=== PATIENT | female | born 1990 | race Caucasian/White ===

== ENCOUNTER 2016-10-02 04:20 | Emergency (ER) | payer SELFPAY ==
[2016-10-02 04:32] VITALS: BP 94/58
[2016-10-02 07:09] LABS: APPEARANCE,URINE SLIGHTLY-CLOUDY; BILIRUBIN,URINE NEGATIVE (NEGATIVE); GLUCOSE, URINE NEGATIVE (NEGATIVE); KETONES,URINE NEGATIVE (NEGATIVE); LEUKOCYTE ESTERASE,URINE LARGE (NEGATIVE); NITRITE,URINE NEGATIVE (NEGATIVE); PROTEIN,URINE NEGATIVE (NEGATIVE); UROBILINOGEN,URINE NEGATIVE mg/dL (<2.0)
--- NOTE | 2016-10-02 08:20 | ER Document Report ---
HPI - HPI Patient complains to provider of: perineal pain Onset: Other - 3 days Onset/Duration: Persistent Quality of pain: Burning Pain Level: 5 Context: Patient complains of pain to perineum for the past 3 days. Patient states that she was [facility] and is currently taking Flagyl to treat bacterial vaginosis. Patient reports that this morning she received a phone call telling her that she tested positive for herpes. She does complain of burning with urination. Patient has not been sexually active since being tested at the health department. Associated Symptoms: Other - Perineal pain Exacerbated by: Other - Urination Relieved by: Denies Similar symptoms previously: No Recently seen / treated by doctor: Yes - ROS ROS below otherwise negative: Yes Systems Reviewed and Negative: Yes All other systems reviewed and negative - CONSTITUTIONAL Constitutional: DENIES: Fever, Chills - CARDIOVASCULAR Cardiovascular: DENIES: Chest pain - URINARY Urinary: REPORTS: Dysuria - REPRODUCTIVE Reproductive: DENIES: : Notes: Pain to perineum, sores to perineum - DERM Skin Color: Normal Skin Problems: Rash Past Medical History - General Information source: Patient Last Menstrual Period: 09/18/2016 - Social History Smoking Status: Current Every Day Smoker Frequency of alcohol use: Social Drug Abuse: None Occupation: none Family History: Arthritis, DM, Hyperlipidemia, Hypertension, Malignancy, Thyroid Disfunction Patient has suicidal ideation: No Patient has homicidal ideation: No Renal/ Medical History: Denies: Hx Peritoneal Dialysis Skin Medical History: Reports Hx MRSA Psychiatric Medical History: Reports: Hx Anxiety, Hx Attention Deficit Hyperactivity Disorder, Hx Depression Infectious Medical History: Reports: Hx MRSA Surgical Hx: Negative - Immunizations Immunizations up to date: Yes Hx Diphtheria, Pertussis, Tetanus Vaccination: Yes Vertical Provider Document - CONSTITUTIONAL Agree With Documented VS: Yes Exam Limitations: No Limitations General Appearance: WD/WN, No Apparent Distress - INFECTION CONTROL TRAVEL OUTSIDE OF THE [place] IN LAST 30 DAYS: No - HEENT HEENT: Atraumatic, Normocephalic - NECK Neck: Normal Inspection - RESPIRATORY Respiratory: Breath Sounds Normal, No Respiratory Distress O2 Sat by Pulse Oximetry: 98 - CARDIOVASCULAR Cardiovascular: Regular Rate, Regular Rhythm - REPRODUCTIVE Notes: Patient with scattered erythematous ulcerations to the vulva - BACK Back: Normal Inspection. negative: CVA Tenderness-Right, CVA Tenderness-Left - MUSCULOSKELETAL/EXTREMETIES Musculoskeletal/Extremeties: MAEW, FROM, Non-Tender - NEURO Level of Consciousness: Awake, Appropriate - DERM Integumentary: Warm, Dry, Rash - Erythematous ulcerations to vulva Course - Vital Signs Vital signs: Temp Pulse Resp BP Pulse Ox 97.7 F 85 16 94/58 L 98 10/02/16 04:32 10/02/16 04:32 10/02/16 04:32 10/02/16 04:32 10/02/16 04:32 - Laboratory Laboratory results interpreted by me: 10/02/16 06:32 Urine Blood SMALL H Ur Leukocyte Esterase LARGE H Discharge - Discharge Clinical Impression: Herpes UTI (urinary tract infection) Qualifiers: Urinary tract infection type: site unspecified Hematuria presence: with hematuria Qualified Code(s): N39.0 - Urinary tract infection, site not specified Condition: Stable Disposition: HOME, SELF-CARE Instructions: Urinary Tract Infection ([facility]), Cephalexin ([facility]), Genital Herpes ( [facility]), Acyclovir ([facility]) Additional Instructions: Return immediately for any new or worsening symptoms Followup with your primary care provider, call tomorrow to make a followup appointment Prescriptions: Acyclovir [Zovirax 200 mg Capsule] 800 mg PO Q4H #140 capsule Cephalexin Monohydrate [Keflex 500 mg Capsule] 500 mg PO BID 7 Days Hydrocodone/Acetaminophen [[place] 5-325 Tablet] 1 each PO Q4 PRN #15 tablet PRN Reason: Referrals: [facility] [Provider Group] - Follow up as needed [facility] [NO LOCAL MD] - Follow up as needed
== END 2016-10-02 09:06 | disposition home or self-care (01) ==
LOC: ER 04:20
DX: A60.04 Herpesviral vulvovaginitis (principal); N39.0 Urinary tract infection, site not specified; R31.9 Hematuria, unspecified; N76.0 Acute vaginitis; B96.89 Other specified bacterial agents as the cause of diseases classified elsewhere; R10.2 Pelvic and perineal pain; F17.200 Nicotine dependence, unspecified, uncomplicated; Z86.14 Personal history of Methicillin resistant Staphylococcus aureus infection
CPT/HCPCS: 81001; 81025; 99284

== ENCOUNTER 2017-06-08 02:33 | Emergency (ER) | payer SELFPAY ==
[2017-06-08 02:54] VITALS: BP 110/58
[2017-06-08] MEDS ORDERED: DEXAMETHASONE SOD PHOS INJ 10 MG/1 ML VIAL IM ONE (03:12)
--- NOTE | 2017-06-08 03:18 | ER Document Report ---
ED General - General Chief Complaint: Ear Pain Stated Complaint: POSSIBLE FB IN LEFT EAR Time Seen by Provider: 06/08/17 03:06 Notes: Patient is a 27-year-old female presents with complaint of pressure and pain behind her left ear that radiates back towards her throat. She denies any fevers. No vomiting. Some congestion. No diarrhea. She is a smoker. No wheezing. No other complaints at this time. Symptoms have been ongoing for just over a day. No trauma or injuries to the ear. No discharge from the ear. TRAVEL OUTSIDE OF THE [place] IN LAST 30 DAYS: No - Related Data Allergies/Adverse Reactions: No Known Allergies Allergy (Verified 10/02/16 04:32) Past Medical History - Social History Smoking Status: Current Every Day Smoker Frequency of alcohol use: None Drug Abuse: None Family History: Arthritis, DM, Hyperlipidemia, Hypertension, Malignancy, Thyroid Disfunction Patient has suicidal ideation: No Patient has homicidal ideation: No Renal/ Medical History: Denies: Hx Peritoneal Dialysis Skin Medical History: Reports Hx MRSA Psychiatric Medical History: Reports: Hx Anxiety, Hx Attention Deficit Hyperactivity Disorder, Hx Depression Infectious Medical History: Reports: Hx MRSA - Immunizations Immunizations up to date: Yes Hx Diphtheria, Pertussis, Tetanus Vaccination: Yes Review of Systems - Review of Systems Notes: My Normal Review Basic REVIEW OF SYSTEMS: CONSTITUTIONAL : Denies fever, chills, or sweats. Denies recent illness. EENT: Left ear pain RESPIRATORY: Denies cough, cold, or chest congestion. Denies shortness of breath, difficulty breathing, or wheezing. GASTROINTESTINAL: Denies abdominal pain. Denies nausea, vomiting, or diarrhea. Denies constipation. Last BM: MUSCULOSKELETAL: Denies neck or back pain or joint pain or swelling. SKIN: Denies rash or skin lesions. NEUROLOGICAL: Denies altered mental status or loss of consciousness. Denies headache. ALL OTHER SYSTEMS REVIEWED AND NEGATIVE. Physical Exam - Vital signs Vitals: Temp Pulse Resp BP 97.6 F 70 18 110/58 L 06/08/17 02:49 06/08/17 02:49 06/08/17 02:49 06/08/17 02:49 - Notes Notes: General Appearance: Well nourished, alert, cooperative, no acute distress, mild obvious discomfort. Vitals: reviewed, See vital signs table. Head: no swelling or tenderness to the head Eyes: PERRL, EOMI, Conjuctiva clear Mouth: No decreasd moisture Throat: No tonsillar inflammation, No airway obstruction, No lymphadenopathy Ears: Clear fluid behind left TM consistent with a serous otitis media. Right TM is normal-appearing. There is no erythema of the TM. Neck: Supple, no neck tenderness Lungs: No wheezing, No rales, No rhonci, No accessory muscle use, good air exchange bilaterally. Heart: Normal rate, Regular rythm, No murmur, no rub Skin: warm, dry, appropriate color, no rash Neuro: speech clear, oriented x 3, normal affect, responds appropriately to questions. Course - Re-evaluation Re-evalutation: 06/08/17 03:14 I suspect the patient has some eustachian tube dysfunction based on the fact that she has severe sometimes media. There is no signs of actual bacterial infection. She does not require antibiotics. I will give her a shot of Decadron to help relieve some inflammation allowing pressure to equalize behind her ear. She has no redness or erythema or swelling of her pharynx on exam. Patient encouraged to return to ER if she has fevers, worsening pain, or if she feels unwell. Patient agrees with plan will be discharged home. Dictation of this chart was performed using voice recognition software; therefore, there may be some unintended grammatical errors. - Vital Signs Vital signs: Temp Pulse Resp BP Pulse Ox 97.6 F 70 18 110/58 L 06/08/17 02:49 06/08/17 02:49 06/08/17 02:49 06/08/17 02:49 Discharge - Discharge Clinical Impression: Serous otitis media Qualifiers: Chronicity: acute Laterality: left Recurrence: not specified as recurrent Qualified Code(s): H65.02 - Acute serous otitis media, left ear Condition: Good Disposition: HOME, SELF-CARE Additional Instructions: PLease quit smoking. Your exam shows some clear fluid behind the left TM consistent with with a Eustachian tube dysfunction. we gave you a shot of a steroid which will usually alleviate the swelling around the Eustachian tube and allow the pressure behind your ear to equalize. Please return to the ER immediately if you develop fevers, worsening pain, difficulty breathing, difficulty swallowing, or if you feel unwell.
== END 2017-06-08 03:41 | disposition home or self-care (01) ==
LOC: ER 02:33
DX: H65.02 Acute serous otitis media, left ear (principal); F17.200 Nicotine dependence, unspecified, uncomplicated; Z86.14 Personal history of Methicillin resistant Staphylococcus aureus infection
CPT/HCPCS: 99282

== ENCOUNTER 2017-12-24 09:25 | Emergency (ER) | payer OTHER ==
[2017-12-24] MEDS ORDERED: MORPHINE SULFATE 10 MG/ML INJ IM ONE (10:25)
[2017-12-24] MEDS ORDERED: ONDANSETRON 4 MG TAB.RAPDIS PO ONE (10:25)
--- NOTE | 2017-12-24 10:28 | ER Document Report ---
ED Medical Screen (RME) - General Chief Complaint: Abdominal Pain Stated Complaint: ABDOMINAL PAIN Time Seen by Provider: 12/24/17 10:08 Mode of Arrival: Ambulatory Information source: Patient, [facility] Records Notes: 27-year-old female with a history of depression, anxiety presents with complaint of lower abdominal pain that started 1 day prior to arrival. Patient describes the pain as a dull ache that is located in her right lower quadrant and is worse with movement. Patient had associated nausea without vomiting. She states the pain became so intense that she was diaphoretic. She was able to sleep but when she awoke the pain was still present. She denies any fever, chills, vaginal discharge. She does admit to pressure with urination. Her last menstrual period was December 10, 2017 and she is on E sure for control. Patient denies prior similar symptoms. She denies sick contacts. She is sexually active. I have greeted and performed a rapid medical assessment of the patient. A comprehensive evaluation and assessment will be performed by another ED provider. Medical decision making, lab review/xrays if performed will be reviewed by the ED provider assuming care of the patient. PHYSICAL EXAMINATION: GENERAL: illl-appearing, well-nourished and in no acute distress. HEAD: Atraumatic, normocephalic. EYES: Pupils equal round extraocular movements intact, conjunctiva are normal. ENT: Nares patent Abdomen:TTP RLQ no guarding or rebound NECK: Normal range of motion LUNGS: No respiratory distress Musculoskeletal: Normal range of motion NEUROLOGICAL: Normal speech, normal gait. PSYCH: Normal mood, normal affect. SKIN: Warm, Dry, normal turgor, no rashes or lesions noted. TRAVEL OUTSIDE OF THE [place] IN LAST 30 DAYS: No - Related Data Allergies/Adverse Reactions: No Known Allergies Allergy (Verified 12/24/17 09:27) Past Medical History - Social History Chew tobacco use (# tins/day): No Frequency of alcohol use: None Drug Abuse: None Renal/ Medical History: Denies: Hx Peritoneal Dialysis Skin Medical History: Reports Hx MRSA Psychiatric Medical History: Reports: Hx Anxiety, Hx Attention Deficit Hyperactivity Disorder, Hx Depression Infectious Medical History: Reports: Hx MRSA - Immunizations Immunizations up to date: Yes Hx Diphtheria, Pertussis, Tetanus Vaccination: Yes Physical Exam - Vital signs Vitals: Temp Pulse Resp BP Pulse Ox 98.0 F 96 16 118/73 100 12/24/17 09:44 12/24/17 09:44 12/24/17 09:44 12/24/17 09:44 12/24/17 09:44 Course - Vital Signs Vital signs: Temp Pulse Resp BP Pulse Ox 98.0 F 96 16 118/73 100 12/24/17 09:44 12/24/17 09:44 12/24/17 09:44 12/24/17 09:44 12/24/17 09:44
[2017-12-24 11:34] LABS: APPEARANCE,URINE SLIGHTLY-CLOUDY; BILIRUBIN,URINE NEGATIVE (NEGATIVE); COLOR,URINE YELLOW; GLUCOSE, URINE NEGATIVE (NEGATIVE); KETONES,URINE NEGATIVE (NEGATIVE); LEUKOCYTE ESTERASE,URINE LARGE (NEGATIVE); NITRITE,URINE NEGATIVE (NEGATIVE); PROTEIN,URINE NEGATIVE (NEGATIVE); URINE SPECIFIC GRAVITY 1.013; UROBILINOGEN,URINE NEGATIVE mg/dL (<2.0)
--- NOTE | 2017-12-24 12:16 | ER Document Report ---
ED General - General Chief Complaint: Abdominal Pain Stated Complaint: ABDOMINAL PAIN Time Seen by Provider: 12/24/17 10:08 Mode of Arrival: Ambulatory Information source: Patient Notes: 27-year-old female no previous abdominal surgeries presents with complaints of umbilical suprapubic right lower quadrant abdominal pain. Patient notes pain is worsened over the past day or so, notes that bumps in the car seemed to make it worse. Denies any fevers or chills denies any vomiting admits nausea from the pain. admits to urinary pressure TRAVEL OUTSIDE OF THE [place] IN LAST 30 DAYS: No - HPI Onset: Other Onset/Duration: Persistent, Worse Quality of pain: Pressure Severity: Mild Pain Level: 1 Associated symptoms: Other Exacerbated by: Denies Relieved by: Denies Similar symptoms previously: No Recently seen / treated by doctor: No - Related Data Allergies/Adverse Reactions: No Known Allergies Allergy (Verified 12/24/17 09:27) Past Medical History - General Information source: Patient, [facility] Records - Social History Smoking Status: Current Every Day Smoker Cigarette use (# per day): Yes Chew tobacco use (# tins/day): No Smoking Education Provided: No Frequency of alcohol use: None Drug Abuse: None Family History: Arthritis, DM, Hyperlipidemia, Hypertension, Malignancy, Thyroid Disfunction Patient has suicidal ideation: No Patient has homicidal ideation: No Renal/ Medical History: Denies: Hx Peritoneal Dialysis Skin Medical History: Reports Hx MRSA Psychiatric Medical History: Reports: Hx Anxiety, Hx Attention Deficit Hyperactivity Disorder, Hx Depression Infectious Medical History: Reports: Hx MRSA - Immunizations Immunizations up to date: Yes Hx Diphtheria, Pertussis, Tetanus Vaccination: Yes Review of Systems - Review of Systems Notes: REVIEW OF SYSTEMS: CONSTITUTIONAL : Denies fever, chills, or sweats. Denies recent illness. EENT: Denies eye, ear, throat, or mouth pain or symptoms. Denies nasal or sinus congestion or discharge. Denies throat, tongue, or mouth swelling or difficulty swallowing. CARDIOVASCULAR: Denies chest pain. Denies palpitations or racing or irregular heart beat. Denies ankle edema. RESPIRATORY: Denies cough, cold, or chest congestion. Denies shortness of breath, difficulty breathing, or wheezing. GASTROINTESTINAL: Admits to suprapubic pressure GENITOURINARY: Denies difficulty urinating, painful urination, burning, frequency, blood in urine, or discharge. FEMALE GENITOURINARY: Denies vaginal bleeding, heavy or abnormal periods, irregular periods. Denies vaginal discharge or odor. MUSCULOSKELETAL: Denies back or neck pain or stiffness. Denies joint pain or swelling. SKIN: Denies rash, lesions or sores. HEMATOLOGIC : Denies easy bruising or bleeding. LYMPHATIC: Denies swollen, enlarged glands. NEUROLOGICAL: Denies confusion or altered mental status. Denies passing out or loss of consciousness. Denies dizziness or lightheadedness. Denies headache. Denies weakness or paralysis or loss of use of either side. Denies problems with gait or speech. Denies sensory loss, numbness, or tingling. Denies seizures. PSYCHIATRIC: Denies anxiety or stress. Denies depression, suicidal ideation, or homicidal ideation. ALL OTHER SYSTEMS REVIEWED AND NEGATIVE. PHYSICAL EXAMINATION: GENERAL: Well-appearing, well-nourished and in no acute distress. HEAD: Atraumatic, normocephalic. EYES: Pupils equal round and reactive to light, extraocular movements intact, conjunctiva are normal. ENT: Nares patent, oropharynx clear without exudates. Moist mucous membranes. NECK: Normal range of motion, supple without lymphadenopathy LUNGS: Breath sounds clear to auscultation bilaterally and equal. No wheezes rales or rhonchi. HEART: Regular rate and rhythm without murmurs ABDOMEN: Soft, tender i nthe suprapubic, rlq with guarding Female : deferred Musculoskeletal: Normal range of motion, no pitting or edema. No cyanosis. NEUROLOGICAL: Cranial nerves grossly intact. Normal speech, normal gait. Normal sensory, motor exams PSYCH: Normal mood, normal affect. SKIN: Warm, Dry, normal turgor, no rashes or lesions noted. Dictation was performed using [employer] voice recognition software Physical Exam - Vital signs Vitals: Temp Pulse Resp BP Pulse Ox 98.0 F 96 16 118/73 100 12/24/17 09:44 12/24/17 09:44 12/24/17 09:44 12/24/17 09:44 12/24/17 09:44 Course - Re-evaluation Re-evalutation: 12/24/17 12:16 Patient's presentation could be a simple UTI however is concerning for appendicitis 12/24/17 15:50 CT noted no sign of pancreatitis, it was noted that there is a 2 cm cyst, as a result ultrasound was performed to rule out a ovarian torsion, this was negative as well. Patient will be started on antibiotics and is otherwise well- appearing no distress will be discharged home with close follow-up After performing a Medical Screening Examination, I estimate there is LOW risk for ACUTE APPENDICITIS, BOWEL OBSTRUCTION, ACUTE CHOLECYSTITIS, PERFORATED DIVERTICULITIS, INCARCERATED HERNIA, PANCREATITIS, PELVIC INFLAMMATORY DISEASE, PERFORATED ULCER, ECTOPIC , or TUBO-OVARIAN ABSCESS, thus I consider the discharge disposition reasonable. Also, there is no evidence or peritonitis , sepsis, or toxicity. I have reevaluated this patient multiple times and no significant life threatening changes are noted. The patient and I have discussed the diagnosis and risks, and we agree with discharging home with close follow-up with the understanding that symptoms and presentations can change. We also discussed returning to the Emergency Department immediately if new or worsening symptoms occur. We have discussed the symptoms which are most concerning (e.g., bloody stool, fever, changing or worsening pain, vomiting) that necessitate immediate return. - Vital Signs Vital signs: Temp Pulse Resp BP Pulse Ox 98.0 F 96 16 118/73 100 12/24/17 09:44 12/24/17 09:44 12/24/17 09:44 12/24/17 09:44 12/24/17 09:44 - Laboratory Laboratory results interpreted by me: 12/24/17 10:27 Urine Blood SMALL H Ur Leukocyte Esterase LARGE H Discharge - Discharge Clinical Impression: UTI (urinary tract infection) Qualifiers: Urinary tract infection type: acute cystitis Hematuria presence: without hematuria Qualified Code(s): N30.00 - Acute cystitis without hematuria Abdominal pain Qualifiers: Abdominal location: unspecified location Qualified Code(s): R10.9 - Unspecified abdominal pain Condition: Stable Disposition: HOME, SELF-CARE Instructions: Urinary Tract Infection ([facility]) Prescriptions: Cephalexin Monohydrate [Keflex 500 mg Capsule] 500 mg PO BID 5 Days capsule Hydrocodone/Acetaminophen [[place] 5-325 mg Tablet] 1 tab PO Q6 #10 tablet Referrals: BARBARA GILLIS MD [Primary Care Provider] - Follow up in 3-5 days
[2017-12-24] MEDS ORDERED: FENTANYL CITRATE INJ/PF 100 MCG/2 ML AMPUL IV ONE (12:51)
--- NOTE | 2017-12-24 13:47 | RADIOLOGY REPORT (SQ) ---
EXAM DESCRIPTION: CT ABD/PELVIS WITH IV ONLY COMPLETED DATE/TIME: 12/24/2017 1:32 pm REASON FOR STUDY: RLQ pain COMPARISON: CT abdomen pelvis 01/02/2010 TECHNIQUE: CT scan of the abdomen and pelvis performed using helical scanning technique with dynamic intravenous contrast injection. No oral contrast. Images reviewed with lung, soft tissue, and bone windows. Reconstructed coronal and sagittal MPR images reviewed. Delayed images for evaluation of the urinary system also acquired. All images stored on PACS. All CT scanners at this facility use dose modulation, iterative reconstruction, and/or weight based d osing when appropriate to reduce radiation dose to as low as reasonably achievable (ALARA). [facility]: Dose Right [facility]: CareDose [facility]: Dose Right [facility]: Teradose 4D [facility]: Fitsistant CONTRAST TYPE AND DOSE: contrast/concentration: Isovue 370.00 mg/ml; Total Contrast Delivered: 79.0 ml; Total Saline Delivered: 68.0 ml RENAL FUNCTION: Creatinine 0.7 RADIATION DOSE: CT Rad equipment meets quality standard of care and radiation dose reduction techniq ues were employed. CTDIvol: 8.8 - 11.9 mGy. DLP: 1135 mGy-cm.. LIMITATIONS: None. FINDINGS: LOWER CHEST: No significant findings. No nodules or infiltrates. LIVER: Normal size. No masses. No dilated ducts. SPLEEN: Normal size. No focal lesions. PANCREAS: No masses. No significant calcifications. No adjacent inflammation or peripancreatic fluid collections. Pancreatic duct not dilated. GALLBLADDER: No identified stones by CT criteria. No inflammatory changes to suggest cholecystitis. ADRENAL GLANDS: No significant masses or asymmetry. RIGHT KIDNEY AND URETER: No solid masses. No significant calcifications. No hydronephrosis or hyd roureter. LEFT KIDNEY AND URETER: No solid masses. No significant calcifications. No hydronephrosis or hydr oureter. AORTA AND VESSELS: No aneurysm. No dissection. Renal arteries, SMA, celiac without stenosis. RETROPERITONEUM: No retroperitoneal adenopathy, hemorrhage or masses. BOWEL AND PERITONEAL CAVITY: No masses or inflammatory changes. No free fluid or peritoneal masses. APPENDIX: Normal, best shown on axial images 49-54 PELVIS: No mass. No free fluid. Normal bladder. Normal size uterus and ovaries with a bilateral eac h short total occlusion devices. 2 cm right ovarian cyst, coronal image 36 and axial image 73. ABDOMINAL WALL: No masses. No hernias. BONES: No significant or acute findings. OTHER: No other significant finding. IMPRESSION: NO SIGNIFICANT OR ACUTE FINDING IN THE ABDOMEN OR PELVIS ON CT SCAN WITH IV CONTRAST. TECHNICAL DOCUMENTATION: JOB ID: [id number] Quality ID # [id number]: Final reports with documentation of one or more dose reduction techniques (e.g., Au tomated exposure control, adjustment of the mA and/or kV according to patient size, use of iterative reconstruction technique) 2010 [employer]- All Rights Reserved Reading location - IP/workstation name: [email or web address]
--- NOTE | 2017-12-24 14:52 | RADIOLOGY REPORT (SQ) ---
EXAM DESCRIPTION: U/S NON OB PEL TV W/DOPPLER COMPLETED DATE/TIME: 12/24/2017 2:36 pm REASON FOR STUDY: RLQ pain COMPARISON: CT abdomen pelvis 12/24/2017 TECHNIQUE: Dynamic and static grayscale images acquired of the pelvis via transvaginal approach and recorded on PACS. Additional selected color Doppler and spectral images recorded. LIMITATIONS: None. FINDINGS: UTERUS: Contour normal. No mass. Uterus is in 10 x 5 x 4.4 cm in size. ENDOMETRIAL STRIPE: No focal or generalized thickening. No masses. Endometrium 12 mm in thickness. CERVIX: Closed, nabothian cysts are present. RIGHT OVARY AND DOPPLER: Normal size, 3 x 2.2 x 2.5 cm in size with a 1.7 cm simple cyst. No worrisom e masses. Normal arterial vascular flow without evidence for torsion. LEFT OVARY AND DOPPLER: Not visualized due to adnexal bowel gas by ultrasound. On CT exam today, lef t ovary is normal size. No gross cysts or masses. FREE FLUID: None noted. OTHER: No other significant finding. IMPRESSION: 2 cm simple cyst right ovary. No Doppler evidence of right ovarian torsion TECHNICAL DOCUMENTATION: JOB ID: [id number] [employer]- All Rights Reserved Rev-12/25 Reading location - IP/workstation name: [email or web address]
[2017-12-24 16:06] VITALS: BP 97/59
== END 2017-12-24 15:58 | disposition home or self-care (01) ==
LOC: ER 09:25
DX: N30.00 Acute cystitis without hematuria (principal); N83.291 Other ovarian cyst, right side; R10.33 Periumbilical pain; R10.31 Right lower quadrant pain; R11.0 Nausea; R39.89 Other symptoms and signs involving the genitourinary system; F17.210 Nicotine dependence, cigarettes, uncomplicated
CPT/HCPCS: 99284; 96372; 96374; 81025; 81001; 76830; 93976; 74177; S0119; J3010; J2270

== ENCOUNTER 2018-01-11 11:13 | Emergency (ER) | payer OTHER ==
[2018-01-11] MEDS ORDERED: NORMAL SALINE 1000 ML 1,000 ML IV ONE (11:56)
--- NOTE | 2018-01-11 12:03 | ER Document Report ---
ED Medical Screen (RME) - General Chief Complaint: Pain With Urination Stated Complaint: URINATION PAIN Time Seen by Provider: 01/11/18 11:49 TRAVEL OUTSIDE OF THE [place] IN LAST 30 DAYS: No - HPI Notes: 01/11/18 11:57 Normally healthy 27-year-old female presents with continued lower abdominal pain and hematuria. Patient seen in the emergency department on December 24. Extensive lab workup and imaging study was unremarkable outside of urinary tract infection. Patient started on Keflex and given [place]. Is about 2 weeks ago now. Patient states her back pain at the time is gotten better but she is continued to have lower abdominal pain 8/10 sharp and stabbing in nature, without radiation. Nothing is made it better or worse. Patient did not follow up with her primary care doctor as intended. Patient states this morning while using the bathroom was a great deal of blood with clots. Concerned her although is not coming from her vagina. She thinks it is getting worse and worse. Patient also endorses easy bruising in her upper extremities. Of unknown etiology has never had evaluation for possible coagulopathy. - Related Data Allergies/Adverse Reactions: No Known Allergies Allergy (Verified 01/11/18 11:14) Past Medical History - Social History Frequency of alcohol use: None Drug Abuse: None Renal/ Medical History: Denies: Hx Peritoneal Dialysis Skin Medical History: Reports Hx MRSA Psychiatric Medical History: Reports: Hx Anxiety, Hx Attention Deficit Hyperactivity Disorder, Hx Depression Infectious Medical History: Reports: Hx MRSA - Immunizations Immunizations up to date: Yes Hx Diphtheria, Pertussis, Tetanus Vaccination: Yes Physical Exam - Vital signs Vitals: Temp Pulse Resp BP Pulse Ox 98.4 F 99 18 119/82 98 01/11/18 11:01/11/18 11:01/11/18 11:01/11/18 11:01/11/18 11:26 Course - Vital Signs Vital signs: Temp Pulse Resp BP Pulse Ox 98.4 F 99 18 119/82 98 01/11/18 11:26 01/11/18 11:26 01/11/18 11:01/11/18 11:26 01/11/18 11:26 Doctor's Discharge - Discharge Referrals: BARBARA GILLIS MD [Primary Care Provider] - Follow up as needed
[2018-01-11 13:03] LABS: ABSOLUTE BASOPHILS # (AUTO) 0.1 10^3/uL (0.0-0.2); ABSOLUTE EOSINOPHILS # (AUTO) 0.1 10^3/uL (0.0-0.6); ABSOLUTE LYMPHOCYTES (AUTO) 1.9 10^3/uL (0.5-4.7); ABSOLUTE MONOCYTES (AUTO) 0.8 10^3/uL (0.1-1.4); ABSOLUTE NEUT (AUTO) 11.1 10^3/uL (1.7-8.2); BASOPHILS % (AUTO) 0.4 % (0-2); EOSINOPHILS % (AUTO) 0.9 % (0-6); HEMATOCRIT 40.4 % (36.0-47.0); HEMOGLOBIN 13.8 g/dL (12.0-15.5); INTERNATIONAL RATION (INR) 0.86; LYMPHOCYTES % (AUTO) 13.5 % (13-45); MEAN CORPUSCULAR HEMOGLOBIN 33.1 pg (27.0-33.4); MEAN CORPUSCULAR HGB CONC 34.1 g/dL (32.0-36.0); MEAN CORPUSCULAR VOLUME 97 fl (80-97); MONOCYTES % (AUTO) 5.7 % (3-13); PLATELET COUNT 403 10^3/uL (150-450); PROTHROMBIN TIME 12.2 SEC (11.4-15.4); RED BLOOD COUNT 4.16 10^6/uL (3.72-5.28); RED CELL DISTRIBUTION WIDTH 13.7 % (11.5-14.0); SEGMENTED NEUTROPHILS % (AUTO) 79.5 % (42-78); TOTAL CELLS COUNTED % (AUTO) 100 %
[2018-01-11 13:04] LABS: PARTIAL THROMBOPLASTIN TIME 25.7 SEC (23.5-35.8)
[2018-01-11 13:11] LABS: ANION GAP 11 (5-19); BLOOD UREA NITROGEN 21 mg/dL (7-20); CALCIUM 10.1 mg/dL (8.4-10.2); CARBON DIOXIDE 26 mmol/L (22-30); CHLORIDE 109 mmol/L (98-107); GLUCOSE 77 mg/dL (75-110); POTASSIUM 4.2 mmol/L (3.6-5.0); SODIUM 145.8 mmol/L (137-145)
[2018-01-11 13:15] LABS: BILIRUBIN,URINE NEGATIVE (NEGATIVE); GLUCOSE, URINE NEGATIVE (NEGATIVE); KETONES,URINE NEGATIVE (NEGATIVE); LEUKOCYTE ESTERASE,URINE TRACE (NEGATIVE); NITRITE,URINE NEGATIVE (NEGATIVE); PROTEIN,URINE 100 mg/dL (NEGATIVE); UROBILINOGEN,URINE NEGATIVE mg/dL (<2.0)
[2018-01-11 13:16] LABS: APPEARANCE,URINE CLOUDY; COLOR,URINE RED
--- NOTE | 2018-01-11 13:29 | ER Document Report ---
ED GI/ - General Mode of Arrival: Ambulatory Information source: Patient TRAVEL OUTSIDE OF THE [place] IN LAST 30 DAYS: No <TALHA MACEDO - Last Filed: 01/11/18 19:18> <JOSE ELIAS PACHECO - Last Filed: 01/11/18 19:43> - General Chief Complaint: Pain With Urination Stated Complaint: URINATION PAIN Time Seen by Provider: 01/11/18 11:49 Notes: Patient is a 27-year-old female who presents to the emergency department today with complaints of blood in her urine. Patient states she was recently seen here and put on antibiotics for a urinary tract infection and her flank pain subsided however the blood and urine has remained. Patient states she feels that she is not completely emptying her bladder. Patient has mild right lower quadrant pain that she describes as a "fluttering" sensation. Patient mentions that she "bruised easily" since giving to her son 9 years ago. Patient also complains of mild nausea but denies any sore throat, runny nose, earache, chest pain, shortness of breath, numbness or tingling, bleeding from vagina, fevers, sweats or chills, or vomiting. (TALHA MACEDO) - Related Data Allergies/Adverse Reactions: No Known Allergies Allergy (Verified 01/11/18 11:14) Past Medical History - General Information source: Patient - Social History Smoking Status: Current Every Day Smoker Cigarette use (# per day): Yes Frequency of alcohol use: None Drug Abuse: None Lives with: Family Family History: Arthritis, DM, Hyperlipidemia, Hypertension, Malignancy, Thyroid Disfunction Patient has suicidal ideation: No Patient has homicidal ideation: No Renal/ Medical History: Denies: Hx Peritoneal Dialysis Skin Medical History: Reports Hx MRSA Psychiatric Medical History: Reports: Hx Anxiety, Hx Attention Deficit Hyperactivity Disorder, Hx Depression Infectious Medical History: Reports: Hx MRSA Surgical Hx: Negative - Immunizations Immunizations up to date: Yes Hx Diphtheria, Pertussis, Tetanus Vaccination: Yes <TALHA MACEDO - Last Filed: 01/11/18 19:18> Review of Systems - Review of Systems Constitutional: denies: Chills, Fever EENT: denies: Ear pain, Throat pain Cardiovascular: denies: Chest pain Respiratory: denies: Short of breath Gastrointestinal: See HPI, Abdominal pain, Nausea. denies: Vomiting Genitourinary: See HPI, Other - incomplete emptying Female Genitourinary: denies: Vaginal bleeding Musculoskeletal: No symptoms reported Skin: See HPI, Other - easy bruising/bleeding Hematologic/Lymphatic: No symptoms reported Neurological/Psychological: denies: Numbness, Tingling -: Yes All other systems reviewed and negative <TALHA MACEDO - Last Filed: 01/11/18 19:18> Physical Exam <TALHA MACEDO - Last Filed: 01/11/18 19:18> <JOSE ELIAS PACHECO - Last Filed: 01/11/18 19:43> - Vital signs Vitals: Temp Pulse Resp BP Pulse Ox 98.4 F 99 18 119/82 98 01/11/18 11:26 01/11/18 11:26 01/11/18 11:26 01/11/18 11:26 01/11/18 11:26 - Notes Notes: PHYSICAL EXAM GENERAL: Alert, interacts well. No acute distress. HEAD: Normocephalic, atraumatic. EYES: Pupils equal, round, and reactive to light. Extraocular movements intact. ENT: Oral mucosa moist, tongue midline. NECK: Full range of motion. Supple. Trachea midline. LUNGS: Clear to auscultation bilaterally, no wheezes, rales, or rhonchi. No respiratory distress. HEART: Regular rate and rhythm. No murmurs, gallops, or rubs. ABDOMEN: Soft, RLQ tenderness with palpation. Slight distension. Bowel sounds present in all 4 quadrants. No guarding, rigidity, or rebound. EXTREMITIES: Moves all 4 extremities spontaneously. No edema, radial and dorsalis pedis pulses 2/4 bilaterally. No cyanosis. NEUROLOGICAL: Alert and oriented x3. Normal speech. PSYCH: Normal affect, normal mood. SKIN: Warm, dry, normal turgor. Large areas of ecchymosis over bilateral upper arms. (TALHA MACEDO) Course - Laboratory Result Diagrams: 01/11/18 12:15 01/11/18 12:15 <TALHA MACEDO - Last Filed: 01/11/18 19:18> - Laboratory Result Diagrams: 01/11/18 12:15 01/11/18 12:15 <JOSE ELIAS PACHECO - Last Filed: 01/11/18 19:43> - Re-evaluation Re-evalutation: 01/11/18 17:44 CBC shows leukocytosis of 14.0, coags normal, BMP shows elevated BUN 21 otherwise grossly unremarkable, test is negative, urinalysis shows large blood, trace leukocyte esterase, greater than 182 WBCs and RBCs, 3+ bacteria, GC and Chlamydia from a dirty urine are negative. Urine has been sent for culture. I did attempt to compare sensitivities to prior urine specimen however on her visit on the urine culture was not sent. As the cephalexin was only partially effective patient will be switched from cephalexin to Bactrim. Given the large amount of clots and dysuria that the patient was having I did order a three-way Saldana with CBI. Patient tolerated this for approximately 2 L and then complained that it was hurting her bladder. The blood did completely resolve. CBI was turned down and there still was no further blood. At this time catheter will be removed, patient will be started on Bactrim, patient is asked to set an alarm so she voids at least every 3 hours, drink at least 4 L of water while taking the antibiotics, urine was sent for culture and she was discharged to home. Patient is to return for fevers, urinary obstruction, any new or concerning symptoms. Also given the patient's easy bruising and now her hematuria patient is referred to hematology for further workup. (JOSE ELIAS PACHECO) - Vital Signs Vital signs: Temp Pulse Resp BP Pulse Ox 98.0 F 75 14 116/62 97 01/11/18 18:23 01/11/18 18:23 01/11/18 18:23 01/11/18 18:23 01/11/18 18:23 - Laboratory Laboratory results interpreted by me: 01/11/18 01/11/18 01/11/18 12:15 12:15 12:15 WBC 14.0 H Seg Neutrophils % 79.5 H Absolute Neutrophils 11.1 H Sodium 145.8 H Chloride 109 H BUN 21 H Urine Protein 100 H Urine Blood LARGE H Ur Leukocyte Esterase TRACE H Discharge <TALHA MACEDO - Last Filed: 01/11/18 19:18> <JOSE ELIAS PACHECO - Last Filed: 01/11/18 19:43> - Discharge Clinical Impression: Easy bruising Hematuria Qualifiers: Hematuria type: gross Qualified Code(s): R31.0 - Gross hematuria UTI (urinary tract infection) Qualifiers: Urinary tract infection type: acute cystitis Hematuria presence: with hematuria Qualified Code(s): N30.01 - Acute cystitis with hematuria Condition: Stable Disposition: HOME, SELF-CARE Additional Instructions: Today your laboratory studies show a urinary tract infection. There is no evidence that is going to your kidneys. After we irrigated her bladder the blood cleared up. It may return, to prevent it from forming any more clots please set an alarm and urinate at least every 3 hours including overnight. Should you stop being able to urinate please return to the emergency department. I have changed her antibiotics from the cephalexin that she took before to Bactrim. This is different class of antibiotic which will hopefully completely clear up your urinary tract infection. I was able to locate your old chart, we did not send that initial urine specimen for culture. I have put today's urine specimen in to be sent for culture. We will call you in the next 3 days if your infection is resistant to the antibiotic that I prescribed. You may continue to use Azo as directed over the counter. Please consider following with Dr. Pantoja, a local hospitality associate for further investigation into why you bruise and bleed so easily. Prescriptions: Hydrocodone/Acetaminophen [Stinnett 5-325 mg Tablet] 1 tab PO Q4HP PRN #10 tablet PRN Reason: Sulfamethoxazole/Trimethoprim [Bactrim Ds Tablet] 1 each PO BID #10 tablet Forms: Return to Work Referrals: BARBARA GILLIS MD [Primary Care Provider] - Follow up as needed JAYLENE PANTOJA MD [ACTIVE STAFF] - Follow up as needed Scribe Attestation: 01/11/18 19:43 I personally performed the services described in the documentation, reviewed and edited the documentation which was dictated to the scribe in my presence, and it accurately records my words and actions. (JOSE ELIAS PACHECO) Scribe Documentation - Scribe Written by Renetta:: Renetta Amaro, 01/11/2018 1555 acting as scribe for :: Alessio <TALHA MACEDO - Last Filed: 01/11/18 19:18>
[2018-01-11] MEDS ORDERED: PHENAZOPYRIDINE HCL 200 MG TABLET PO ONE (13:33)
[2018-01-11] MEDS ORDERED: KETOROLAC TROMETHAMINE INJ/PF 30 MG/1 ML SDV IV ONE (14:42)
[2018-01-11 15:58] LABS: CHLAM PCR NOT DETECTED (NOT DETECT); GON PCR NOT DETECTED (NOT DETECT)
[2018-01-11] MEDS ORDERED: SULFAMETHOXAZOLE/TRIMETHOPRIM 800-160 MG TABLET PO ONE (17:42)
[2018-01-11] MEDS ORDERED: ACETAMINOPHEN 325 MG TABLET PO ONE (18:08)
[2018-01-11 18:31] VITALS: BP 116/62
== END 2018-01-11 18:30 | disposition home or self-care (01) ==
LOC: ER 11:13
DX: N30.01 Acute cystitis with hematuria (principal); R23.3 Spontaneous ecchymoses; R10.31 Right lower quadrant pain; R11.0 Nausea; D72.829 Elevated white blood cell count, unspecified; F17.210 Nicotine dependence, cigarettes, uncomplicated
CPT/HCPCS: 99283; 96361; 96374; 36415; 87086; 84703; 85025; 85610; 85730; 87088; 80048; 81001; 87186; 87491; 87591; J1885; J3490; J7030

== ENCOUNTER 2018-01-26 21:41 | Emergency (ER) | payer OTHER ==
[2018-01-26 22:25] VITALS: BP 117/71
== END 2018-01-26 22:40 | disposition left against medical advice (07) ==
LOC: ER 21:41
DX: Z53.21 Procedure and treatment not carried out due to patient leaving prior to being seen by health care provider (principal)

== ENCOUNTER 2018-02-20 10:02 | Emergency (ER) | payer OTHER ==
[2018-02-20 10:10] VITALS: BP 127/75
[2018-02-20] MEDS ORDERED: ONDANSETRON 4 MG TAB.RAPDIS PO ONE (10:20)
[2018-02-20] MEDS ORDERED: LIDOCAINE 1% INJ-PF (10 MG/ML) 30 ML SDV INJ ONE (10:20)
--- NOTE | 2018-02-20 10:23 | ER Document Report ---
ED Medical Screen (RME) - General Chief Complaint: Abscess Stated Complaint: ABSCESS Time Seen by Provider: 02/20/18 10:20 Notes: RAPID MEDICAL EVALUATION DISCLOSURE I have seen this patient as part of a Rapid Medical Evaluation and, if applicable, placed any initially appropriate orders. The patient will be seen and fully evaluated, including a full history and physical exam, by a provider ( in Main ED or Fast Track) when a room becomes available. 27-year-old female here with several days complaints of right armpit abscess. She poked a hole in it and it was draining purulent material initially however she states she has not been able to get anymore out. She has not taken anything for the pain. Pain is worse with movement and placing pressure on the area. She has some nausea due to the pain. Denies fevers chills. She does have a history of MRSA years ago for which she was taking Bactrim. EXAM Right axilla 2 cm area of fluctuance and mild erythema but no drainage NOTE Patient declines pain medication at this time TRAVEL OUTSIDE OF THE [place] IN LAST 30 DAYS: No - Related Data Allergies/Adverse Reactions: No Known Allergies Allergy (Verified 02/20/18 10:21) Past Medical History - Social History Chew tobacco use (# tins/day): No Frequency of alcohol use: None Drug Abuse: None Renal/ Medical History: Denies: Hx Peritoneal Dialysis Skin Medical History: Reports Hx MRSA Psychiatric Medical History: Reports: Hx Anxiety, Hx Attention Deficit Hyperactivity Disorder, Hx Depression Infectious Medical History: Reports: Hx MRSA - Immunizations Immunizations up to date: Yes Hx Diphtheria, Pertussis, Tetanus Vaccination: Yes Physical Exam - Vital signs Vitals: Temp Pulse Resp BP Pulse Ox 98.8 F 96 18 127/75 H 99 02/20/18 10:06 02/20/18 10:06 02/20/18 10:06 02/20/18 10:06 02/20/18 10:06 Course - Vital Signs Vital signs: Temp Pulse Resp BP Pulse Ox 98.8 F 96 18 127/75 H 99 02/20/18 10:06 02/20/18 10:06 02/20/18 10:06 02/20/18 10:06 02/20/18 10:06 Doctor's Discharge - Discharge Referrals: BARBARA GILLIS MD [Primary Care Provider] - Follow up as needed
[2018-02-20] MEDS ORDERED: SULFAMETHOXAZOLE/TRIMETHOPRIM 800-160 MG TABLET PO ONE (10:43)
[2018-02-20] MEDS ORDERED: CEPHALEXIN 500 MG CAPSULE PO ONE (10:43)
--- NOTE | 2018-02-20 10:46 | ER Document Report ---
HPI - HPI Patient complains to provider of: Abscess Onset: Other - 3 days Onset/Duration: Persistent Quality of pain: Sharp Pain Level: 4 Context: Patient complains of an abscess to right axilla for the past 3 days. Patient complains of nausea. Patient states she did squeeze on the area and had some purulent drainage this morning. Associated Symptoms: denies: Fever Exacerbated by: Movement Relieved by: Denies Similar symptoms previously: Yes Recently seen / treated by doctor: No - ROS ROS below otherwise negative: Yes Systems Reviewed and Negative: Yes All other systems reviewed and negative - CONSTITUTIONAL Constitutional: DENIES: Fever - GASTROINTESTINAL Gastrointestinal: DENIES: Nausea - REPRODUCTIVE Reproductive: DENIES: : - MUSCULOSKELETAL Musculoskeletal: REPORTS: Extremity pain - DERM Skin Color: Erythema Past Medical History - General Information source: Patient - Social History Smoking Status: Current Every Day Smoker Chew tobacco use (# tins/day): No Smoking Education Provided: Yes Frequency of alcohol use: None Drug Abuse: None 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 Lives with: Family Family History: Arthritis, DM, Hyperlipidemia, Hypertension, Malignancy, Thyroid Disfunction Patient has suicidal ideation: No Patient has homicidal ideation: No Renal/ Medical History: Denies: Hx Peritoneal Dialysis Skin Medical History: Reports Hx MRSA Psychiatric Medical History: Reports: Hx Anxiety, Hx Attention Deficit Hyperactivity Disorder, Hx Depression Infectious Medical History: Reports: Hx MRSA Surgical Hx: Negative - Immunizations Immunizations up to date: Yes Hx Diphtheria, Pertussis, Tetanus Vaccination: Yes Vertical Provider Document - CONSTITUTIONAL Agree With Documented VS: Yes Exam Limitations: No Limitations General Appearance: WD/WN, No Apparent Distress - INFECTION CONTROL TRAVEL OUTSIDE OF THE [place] IN LAST 30 DAYS: No - HEENT HEENT: Atraumatic, Normocephalic - NECK Neck: Normal Inspection - RESPIRATORY Respiratory: No Respiratory Distress - CARDIOVASCULAR Pulses: Normal: Radial - BACK Back: Normal Inspection - MUSCULOSKELETAL/EXTREMETIES Musculoskeletal/Extremeties: AKIL NATARAJAN - NEURO Level of Consciousness: Awake, Alert, Appropriate Motor/Sensory: No Motor Deficit - DERM Integumentary: Warm, Dry, Abscess - Right axilla abscess with overlying skin erythema Course - Vital Signs Vital signs: Temp Pulse Resp BP Pulse Ox 98.8 F 96 18 127/75 H 99 02/20/18 10:06 02/20/18 10:06 02/20/18 10:06 02/20/18 10:06 02/20/18 10:06 Procedures - Incision and Drainage Right Arm Type: Simple Anesthetic type: 1% Lidocaine Blade size: 11 I&D procedure: Betadine prep applied Incision Method: Incision made by scalpel Amount/type of drainage: Small amount of purulent drainage noted Discharge - Discharge Clinical Impression: Abscess, Encounter for incision and drainage procedure Condition: Stable Disposition: HOME, SELF-CARE Instructions: Abscess ([facility]), Cephalexin ([facility]), Post Incision and Drainage, Trimethoprim-Sulfa ([facility]) Additional Instructions: Return immediately for any new or worsening symptoms Followup with your primary care provider, call tomorrow to make a followup appointment Prescriptions: Cephalexin Monohydrate [Keflex 500 mg Capsule] 500 mg PO Q6H 5 Days capsule Naproxen [Naprosyn 250 Nmg Tablet] 1 tab PO BID #14 tablet Sulfamethoxazole/Trimethoprim [Bactrim Ds Tablet] 1 each PO BID #20 tablet Forms: Smoking Cessation Education Referrals: BARBARA GILLIS MD [Primary Care Provider] - Follow up as needed
== END 2018-02-20 10:53 | disposition home or self-care (01) ==
LOC: ER 10:02
DX: L02.411 Cutaneous abscess of right axilla (principal); R11.0 Nausea; F17.200 Nicotine dependence, unspecified, uncomplicated; Z86.14 Personal history of Methicillin resistant Staphylococcus aureus infection
CPT/HCPCS: 99283; 10060; S0119

== ENCOUNTER 2018-04-25 04:14 | Emergency (ER) | payer SELFPAY ==
[2018-04-25 04:26] VITALS: BP 111/67
[2018-04-25] MEDS ORDERED: DIPHENHYDRAMINE HCL 50 MG/ML VIAL IV ONE (05:09)
[2018-04-25] MEDS ORDERED: METOCLOPRAMIDE HCL INJ/PF 10 MG/2 ML SDV IV ONE (05:09)
[2018-04-25] MEDS ORDERED: NORMAL SALINE 1000 ML 1,000 ML IV ONE (05:10)
--- NOTE | 2018-04-25 05:12 | ER Document Report ---
Doctor's Note Notes: 04/25/18 05:10 I performed a quick triage evaluation the patient. Patient is 28-year-old female who presents with complaint of a headache. Headache her from sleep approximately 2 hours ago. She said some vomiting so she with the. Pain is into the top of her head and lobe into the back. She says if she pushes on her neck actually helps relieve the pain some. She does have photophobia. She does have a history of migraines. She says she does get migraines it frequently. She is to be a medicine that dissolves her mouth helps relieve the migraines. She is no longer on this medication. She does not take anything at home for pain. No focal weakness or numbness into her extremities. No syncopal episode. No other complaints at this time. On exam patient's cranial nerves are intact. She has no neurologic deficits. She is able move all extremities without difficulty. I have ordered a CT scan and medications. 04/25/18 05:11
--- NOTE | 2018-04-25 06:06 | RADIOLOGY REPORT (SQ) ---
CT head without contrast on 04/25/2018 at 5:50 AM CLINICAL INDICATION: Headache TECHNIQUE: Multiple axial images are obtained throughout the head without the administration of contrast. This exam was performed according to our departmental dose-optimization program, which includes automated exposure control, adjustment of the mA and/or kV according to patient size and/or use of iterative reconstruction technique. Total DLP is 1043.77 mGy*cm. COMPARISON: None FINDINGS: There is no hydrocephalus. There is no CT evidence of acute infarct. There is no hemorrhage. There are no abnormal extra-axial fluid collections. There is no mass, mass effect or midline shift. No bony abnormality is noted. Mucous retention cyst is noted in the floor of the right maxillary sinus. IMPRESSION: No acute intracranial abnormality.
[2018-04-25] MEDS ORDERED: KETOROLAC TROMETHAMINE INJ/PF 30 MG/1 ML SDV IV ONE (06:10)
--- NOTE | 2018-04-25 06:29 | ER Document Report ---
ED Headache - General Chief Complaint: Headache Stated Complaint: HEADACHE Time Seen by Provider: 04/25/18 05:05 TRAVEL OUTSIDE OF THE [place] IN LAST 30 DAYS: No - HPI Patient complains to provider of: "Migraine" - 28-year-old female with past medical history significant for headaches who presents for evaluation of a headache which began 2 days prior, she notes that it is primarily on the top of her head with some tension moving down the back of her head, it is caused her to have a few episodes of emesis during this time. She denies any fevers or chills runny nose cough other systemic signs of illness, rashes, chest pain shortness of breath abdominal pain diarrhea. She does not take anything to try and help with it nothing seemed to make it better or worse. - Related Data Allergies/Adverse Reactions: No Known Allergies Allergy (Verified 02/20/18 10:21) Past Medical History - General Information source: Patient - Social History Smoking Status: Current Some Day Smoker Family History: Arthritis, DM, Hyperlipidemia, Hypertension, Malignancy, Thyroid Disfunction Patient has suicidal ideation: No Patient has homicidal ideation: No Renal/ Medical History: Denies: Hx Peritoneal Dialysis Skin Medical History: Reports Hx MRSA Psychiatric Medical History: Reports: Hx Anxiety, Hx Attention Deficit Hyperactivity Disorder, Hx Depression Infectious Medical History: Reports: Hx MRSA - Immunizations Immunizations up to date: Yes Hx Diphtheria, Pertussis, Tetanus Vaccination: Yes Review of Systems - Review of Systems -: Yes All other systems reviewed and negative Physical Exam - Vital signs Vitals: Temp Pulse Resp BP Pulse Ox 98.0 F 91 20 111/67 100 04/25/18 04:21 04/25/18 04:21 04/25/18 04:21 04/25/18 04:21 04/25/18 04:21 - General General appearance: Appears well In distress: None - HEENT Head: Normocephalic Eyes: Normal Conjunctiva: Normal Cornea: Normal Extraocular movements intact: Yes Eyelashes: Normal Pupils: PERRL Ears: Normal External canal: Normal Tympanic membrane: Normal Mouth/Lips: Normal Mucous membranes: Normal Pharynx: Normal Neck: Normal - Respiratory Respiratory status: No respiratory distress Chest status: Nontender Breath sounds: Normal Chest palpation: Normal - Cardiovascular Rhythm: Regular Heart sounds: Normal auscultation Murmur: No - Abdominal Inspection: Normal Distension: No distension Tenderness: Nontender - Back Back: Normal - Extremities General upper extremity: Normal inspection, Nontender, Normal ROM, Normal strength General lower extremity: Normal inspection, Nontender, Normal ROM, Normal strength - Neurological Neuro grossly intact: Yes Cognition: Normal Orientation: AAOx4 Jurgen Coma Scale Eye Opening: Spontaneous Slinger Coma Scale Verbal: Oriented Slinger Coma Scale Motor: Obeys Commands Jurgen Coma Scale Total: 15 Speech: Normal Cranial nerves: Normal Cerebellar coordination: Normal Motor strength normal: LUE, RUE, LLE, RLE 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 She has a very reassuring neurologic examination and no moves all extremities appropriately, she has no symptoms to suggest meningismus as she does not have nuchal rigidity is able to range the head in all directions and does not have any secondary signs of infection. We will plan for symptom control approach she had a CT head ordered through E exam, CT of the head is negative do not believe there is an indication at this time for lumbar puncture as this is not the most severe headache of her life, did not have a thunderclap quality in onset. We will plan for reassessment. - Vital Signs Vital signs: Temp Pulse Resp BP Pulse Ox 98.0 F 91 20 111/67 100 04/25/18 04:21 04/25/18 04:21 04/25/18 04:21 04/25/18 04:21 04/25/18 04:21 Discharge - Discharge Clinical Impression: Headache Qualifiers: Headache type: unspecified Headache chronicity pattern: acute headache Intractability: not intractable Qualified Code(s): R51 - Headache Condition: Good Disposition: HOME, SELF-CARE Instructions: Headache ([facility]) Additional Instructions: Your seen today in the emergency department for your headache, you had an evaluation including a physical exam as well as a CAT scan of your head, a CAT scan of her head did not demonstrate any obvious abnormality. It is likely that your headache was related to a migraine however this is not definite. Use Motrin or Aleve at home to continue to work on your symptoms of headache, you may also utilize Tylenol. You be given a prescription for a headache medication. Use this medication only as needed for migraines. Return for worsening weakness numbness inability to eat or drink fevers or chills. Referrals: BARBARA GILLIS MD [Primary Care Provider] - Follow up as needed
== END 2018-04-25 08:07 | disposition home or self-care (01) ==
LOC: ER 04:14
DX: R51 Headache (principal); F17.200 Nicotine dependence, unspecified, uncomplicated; Z86.14 Personal history of Methicillin resistant Staphylococcus aureus infection
CPT/HCPCS: 99284; 96361; 96374; 96375; 70450; J1200; J1885; J2765